=== PATIENT | female | born 1990 | race Caucasian/White ===

== ENCOUNTER 2021-08-21 17:17 | Emergency (ER) | payer OTHER ==
[~2021-08-21] VITALS: Ht 149.9 cm; Wt 77.1 kg
[2021-08-21 17:22] VITALS: BP_SYST 149
--- NOTE | 2021-08-21 17:22 | NUR ---
Patient to ER bed 07 to gown for evaluation. Side rails up. Report given to MAYNOR Gupta
--- NOTE | 2021-08-21 17:30 | NUR ---
Patient AAOx4 from home stating she has been having vaginal bleeding. was seen by MD and noticed today a larger clot being passed today. Patient is about 9 weeks . . patient was seen crying. provided water for pelvic ultrasound to be done.
[2021-08-21 18:17] LABS: BASOPHILS % (AUTO) 0.5 % (0.0-2.0); EOSINOPHILS # (AUTO) 0.1 K/uL (0.0-0.4); EOSINOPHILS % (AUTO) 0.9 % (0.0-4.0); HEMATOCRIT 35.7 % (36-48); HEMOGLOBIN 11.9 g/dL (12.0-16.0); LYMPHOCYTES # (AUTO) 2.1 K/uL (1.0-5.5); LYMPHOCYTES % (AUTO) 28.1 % (20.5-51.5); MEAN CORPUSCULAR HEMOGLOBIN 28 pg (27-31); MEAN CORPUSCULAR HGB CONC 33 % (32-36); MEAN CORPUSCULAR VOLUME 84 fL (79.0-98.0); MONOCYTES # (AUTO) 0.6 K/uL (0.0-1.0); MONOCYTES % (AUTO) 7.3 % (1.7-9.3); NEUTROPHILS # (AUTO) 4.8 K/uL (1.8-7.7); NEUTROPHILS % (AUTO) 63.2 % (40.0-70.0); PLATELET COUNT (AUTO) 338 K/uL (130-430); RED BLOOD CELL COUNT(AUTO) 4.25 MIL/uL (4.2-6.2); RED CELL DISTRIBUTION WIDTH 14.8 % (9.0-15.0); WHITE BLOOD COUNT (AUTO) 7.6 K/uL (4.8-10.8)
--- NOTE | 2021-08-21 18:30 | NUR ---
patient taken to Ultrasound.
--- NOTE | 2021-08-21 18:47 | NUR ---
patient back from ultrasound.
--- NOTE | 2021-08-21 19:14 | NUR ---
report given to MAYNOR Benjamin who will assume care.
[2021-08-21] MEDS ORDERED: CEPH-548 PO (20:00)
[2021-08-21 20:11] VITALS: BP_SYST 144
--- NOTE | 2021-08-21 20:12 | NUR ---
Patient given written and verbal discharge instructions and verbalizes understanding. ER MD Taylor discussed with patient the results and treatment provided. Patient in stable condition. ID arm band removed. Rx of Keflex sent to pharmacy of choice. Patient educated on diagnosis and to follow up with PMD. Opportunity for questions provided and answered. Medication side effect fact sheet provided. Addendum: 08/21/21 at 2013 by [email or web address] MAYNOR Benjamin
== END 2021-08-21 20:11 | disposition home or self-care (01) ==
LOC: SED 17:17
DX: O03.9 Complete or unspecified spontaneous abortion without complication (principal); O13.1 Gestational [pregnancy-induced] hypertension without significant proteinuria, first trimester; O23.41 Unspecified infection of urinary tract in pregnancy, first trimester; O99.011 Anemia complicating pregnancy, first trimester; O26.91 Pregnancy related conditions, unspecified, first trimester; Z3A.09 9 weeks gestation of pregnancy
CPT/HCPCS: 36415; 76856-TC; 81002; 84702; 85025; 86900; 86901; 99284

== ENCOUNTER 2021-11-16 15:48 | Emergency (ER) | payer BC, MEDICAID ==
[~2021-11-16] VITALS: Ht 149.9 cm; Wt 72.6 kg
[~2021-11-16 15:48] MED LIST: CEPH-548 PO
[2021-11-16 16:10] VITALS: BP_SYST 150
[2021-11-16 16:57] LABS: BASOPHILS % (AUTO) 0.6 % (0.0-2.0); EOSINOPHILS % (AUTO) 0.4 % (0.0-4.0); HEMATOCRIT 36.8 % (36-48); HEMOGLOBIN 12.5 g/dL (12.0-16.0); LYMPHOCYTES # (AUTO) 1.9 K/uL (1.0-5.5); LYMPHOCYTES % (AUTO) 30.3 % (20.5-51.5); MEAN CORPUSCULAR HEMOGLOBIN 28 pg (27-31); MEAN CORPUSCULAR HGB CONC 34 % (32-36); MEAN CORPUSCULAR VOLUME 83 fL (79.0-98.0); MONOCYTES # (AUTO) 0.5 K/uL (0.0-1.0); MONOCYTES % (AUTO) 8.7 % (1.7-9.3); NEUTROPHILS # (AUTO) 3.7 K/uL (1.8-7.7); PLATELET COUNT (AUTO) 306 K/uL (130-430); RED BLOOD CELL COUNT(AUTO) 4.43 MIL/uL (4.2-6.2); RED CELL DISTRIBUTION WIDTH 15.8 % (9.0-15.0); WHITE BLOOD COUNT (AUTO) 6.2 K/uL (4.8-10.8)
[2021-11-16 16:58] LABS: CALCIUM 8.6 mg/dL (8.4-11.0); CREATININE 0.7 mg/dL (0.55-1.30); POTASSIUM 4.1 mmol/L (3.5-5.1)
[2021-11-16 17:04] LABS: ALBUMIN 3.3 g/dL (3.4-4.8); TOTAL BILIRUBIN 0.1 mg/dL (0.0-1.0)
--- NOTE | 2021-11-16 19:33 | NUR ---
Patient to ER bed 05 to gown for evaluation. Side rails up. Report given to MAYNOR HOPKINS
--- NOTE | 2021-11-16 19:33 | NUR ---
LINO Guerra at bedside examining patient.
[2021-11-16] MEDS ORDERED: MAG HYDROX/AL HYDROX/SIMETH 30 ML, LIDOCAINE VISCOUS 2% 15ML (PO) 15 ML, DICYCLOMINE HC... PO ONE ×3 (19:45)
--- NOTE | 2021-11-16 20:19 | NUR ---
Urine: Dark yellow, clear. Sent to lab.
[2021-11-16 20:37] LABS: BILIRUBIN,URINE NEGATIVE (NEGATIVE); BLOOD, URINE NEGATIVE (NEGATIVE); COLOR,URINE YELLOW (YELLOW); GLUCOSE,URINE NEGATIVE (NEGATIVE); KETONES,URINE 1+ (NEGATIVE); NITRITE, URINE NEGATIVE (NEGATIVE); PH,URINE 5.5 (5.0-8.0); PROTEIN URINE NEGATIVE (NEGATIVE); UROBILINOGEN,URINE 0.2 (0.2-1.0)
--- NOTE | 2021-11-16 20:48 | NUR ---
31 y/o F, ambulatory from home with c/o epigastric pain x2 weeks. Pt states she is 9 weeks and had a miscarriage back in August. Denies any vaginal bleeding. Arrived to ED in no acute distress. Breathing adequately on RA. Addendum: 11/16/21 at 2237 by [email or web address] MAYNOR Benjamin
[2021-11-16 21:01] LABS: CLARITY/URINE HAZY (CLEAR); LEUKOCYTE ESTERASE ,URINE 2+ (NEGATIVE)
[2021-11-16 21:02] LABS: BACTERIA,URINE FEW /HPF (None Seen); MUCUS,URINE 1+ /LPF (None Seen); RBC,URINE 0-3 /HPF (0-3)
[2021-11-16] MEDS ORDERED: ANT30 PO (22:41)
[2021-11-16] MEDS ORDERED: ONDA-8 TL (22:41)
[2021-11-16] MEDS ORDERED: OMEP40CA20 PO (22:41)
[2021-11-16 23:00] VITALS: BP_SYST 117
== END 2021-11-16 23:00 | disposition home or self-care (01) ==
LOC: SED 15:48
DX: O99.612 Diseases of the digestive system complicating pregnancy, second trimester (principal); R11.2 Nausea with vomiting, unspecified; Z3A.08 8 weeks gestation of pregnancy
CPT/HCPCS: 99283; 80053; 81000; 84702; 83690; 85025; 87086; 36415; J2001